=== PATIENT | female | born 1960 | race Hispanic/Latino ===

== ENCOUNTER 2016-10-24 15:51 | Outpatient (CLI) | payer BC ==
--- NOTE | 2016-10-24 16:29 | XRay Report ---
LUMBAR SPINE THREE VIEWS: 10/24/16 15:51:00 CLINICAL: Back pain without radiation. FINDINGS: Moderate dextroscoliosis centered at L4. Slight right lateral listhesis at L4. Multilevel degenerative disc disease with disc space narrowing and osteophytes at L2-3, L3-4 and L4-5. The pedicles are intact. No fracture. Normal soft tissues. IMPRESSION: Scoliosis and multilevel degenerative disc disease. Slight right lateral listhesis at L4. Flexion and extension views with side bending would be helpful to evaluate for instability at L4.
--- NOTE | 2016-10-24 16:30 | XRay Report ---
Right hip 3 views: History: Back pain without radiation. Findings: No bony or articular abnormality the hip joint. No fracture dislocation or soft tissue calcification. Impression: No bony or articular abnormality.
== END 2016-10-24 15:52 | disposition home or self-care (01) ==
LOC: SPVIMAG 15:51
PROVIDERS: ATTEND Internal Medicine
DX: M51.36 Other intervertebral disc degeneration, lumbar region (principal); M41.86 Other forms of scoliosis, lumbar region; M25.78 Osteophyte, vertebrae
CPT/HCPCS: 72100